=== PATIENT | female | born 1985 | race African-American/Black ===

== ENCOUNTER 2018-02-11 04:15 | Emergency (ER) | payer OTHER ==
--- NOTE | 2018-02-11 04:59 | ED ---
General Adult HPI - General Chief complaint: Dental/Oral Stated complaint: dental pain Time Seen by Provider: 02/11/18 04:25 Source: patient, RN notes reviewed, old records reviewed Mode of arrival: ambulatory Limitations: no limitations - History of Present Illness Initial comments: 32-year-old female presenting for evaluation of dental pain and facial swelling. Patient has been dealing with some left lower molar issues for some time. She's had root canal in the past. She developed some facial swelling over the past 24 hours as well as worsening pain in the left lower molars. Denies fever or chills but states she has had some myalgias. Denies vomiting but does complain of nausea. No significant abdominal pain. No dysuria. She has had some urinary frequency as well. She is otherwise healthy. No chest pain or shortness of breath. No cough. - Related Data Previous Rx's Medication Instructions Recorded Amoxicillin 500 mg PO Q8H #21 capsule 02/11/18 Ibuprofen [Motrin] 600 mg PO Q8HR PRN #24 tab 02/11/18 Sulfamethox-Tmp 800-160Mg [Bactrim 1 tab PO Q12HR #28 tab 02/11/18 DS 800-160 mg] Allergies Allergy/AdvReac Type Severity Reaction Status Date / Time No Known Allergies Allergy Verified 02/11/18 04:20 Review of Systems ROS Statement: Those systems with pertinent positive or pertinent negative responses have been documented in the HPI. ROS Other: All systems not noted in ROS Statement are negative. Past Medical History Past Medical History: No Reported History History of Any Multi-Drug Resistant Organisms: None Reported Past Surgical History: No Surgical Hx Reported Past Psychological History: No Psychological Hx Reported Smoking Status: Current every day smoker Past Alcohol Use History: Occasional Past Drug Use History: Marijuana General Exam Limitations: no limitations General appearance: alert, in no apparent distress Head exam: Present: atraumatic, normocephalic Eye exam: Present: normal appearance ENT exam: Present: other (No trismus, there is some soft tissue swelling of the left face, there is tenderness to percussion on the left lower molars. No drainable abscess.) Respiratory exam: Present: normal lung sounds bilaterally. Absent: respiratory distress, wheezes Cardiovascular Exam: Present: regular rate, normal rhythm GI/Abdominal exam: Present: soft. Absent: distended, tenderness Extremities exam: Present: normal inspection Back exam: Present: normal inspection, full ROM. Absent: tenderness Neurological exam: Present: alert, oriented X3. Absent: motor sensory deficit Psychiatric exam: Present: normal affect, normal mood Skin exam: Present: warm, dry, intact. Absent: cyanosis, diaphoretic Course Vital Signs 02/11/18 04:17 Temperature 98.8 F Pulse Rate 93 Respiratory 16 Rate Blood Pressure 109/75 O2 Sat by Pulse 99 Oximetry Medical Decision Making - Medical Decision Making 32-year-old female with facial swelling and dental pain. Patient started on amoxicillin and Motrin. She will follow-up with her dentist. Return with worsening or changing symptoms. Urinalysis does show UTI. - Lab Data Lab Results 02/11/18 02/11/18 Range/Units 04:40 04:40 Urine Color Yellow Urine Appearance Cloudy H (Clear) Urine pH 5.5 (5.0-8.0) Ur Specific [place] 1.015 (1.001-1.035) Urine Protein Trace H (Negative) Urine Glucose (UA) Negative (Negative) Urine Ketones Negative (Negative) Urine Blood Small H (Negative) Urine Nitrite Negative (Negative) Urine Bilirubin Negative (Negative) Urine Urobilinogen <2.0 (<2.0) mg/dL Ur Leukocyte Esterase Large H (Negative) Urine RBC 7 H (0-5) /hpf Urine WBC >182 H (0-5) /hpf Urine WBC Clumps Occasional H (None) /hpf Ur Squamous Epith Cells 9 H (0-4) /hpf Urine Bacteria Rare H (None) /hpf Urine Mucus Many H (None) /hpf Urine HCG, Qual Not Detected (Not Detectd) Disposition Clinical Impression: Toothache, Fracture of tooth, Dental abscess, UTI (urinary tract infection) Disposition: HOME SELF-CARE Instructions: Dental Abscess (ED), Toothache (ED), Urinary Tract Infection in Women (ED) Additional Instructions: Please follow up with your dentist as soon as possible. Please also follow up with primary care physician. Return with worsening or changing symptoms. Prescriptions: Amoxicillin 500 mg PO Q8H #21 capsule Ibuprofen [Motrin] 600 mg PO Q8HR PRN #24 tab PRN Reason: Pain Sulfamethox-Tmp 800-160Mg [Bactrim DS 800-160 mg] 1 tab PO Q12HR #28 tab Is patient prescribed a controlled substance at d/c from ED?: No Referrals: None,Stated [Primary Care Provider] - 1-2 days Time of Disposition: 04:58
[2018-02-11 05:29] LABS: Appearance,Urine Cloudy (Clear); Bacteria,Urine Rare /hpf; Bilirubin,Urine Negative (Negative); Blood,Urine Small (Negative); Color,Urine Yellow; Glucose,Urine (UA) Negative (Negative); Ketones,Urine Negative (Negative); Leukocyte Esterase,Urine Large (Negative); Mucus,Urine Many /hpf; Nitrite,Urine Negative (Negative); PH, Urine 5.5 (5.0-8.0); Protein,Urine Trace (Negative); RBC,Urine 7 /hpf (0-5); Specific Gravity,Urine 1.015 (1.001-1.035); Squamous Epithelial Cell,Urine 9 /hpf (0-4); Urobilinogen,Urine <2.0 mg/dL (<2.0); WBC,Urine >182 /hpf (0-5)
[2018-02-11 05:47] VITALS: BP 122/77; PULSE 82; RESP 17; TEMP 99.5
== END 2018-02-11 05:41 | disposition home or self-care (01) ==
LOC: EC 04:15
DX: S02.5XXA Fracture of tooth (traumatic), initial encounter for closed fracture (principal); K04.7 Periapical abscess without sinus; N39.0 Urinary tract infection, site not specified; F17.200 Nicotine dependence, unspecified, uncomplicated; X58.XXXA Exposure to other specified factors, initial encounter
CPT/HCPCS: 81001; 81025; 99283